=== PATIENT | male | born 1955 | race Two or more races ===

== ENCOUNTER 2018-12-16 10:15 | Outpatient (CLI) | payer OTHER | END 2018-12-16 10:25 | disposition home or self-care (01) | LOC: RAD 10:15 | DX: K44.9 Diaphragmatic hernia without obstruction or gangrene (principal) ==

== ENCOUNTER 2024-09-03 14:31 | Emergency (ER) | payer OTHER ==
[~2024-09-03] VITALS: Ht 165.1 cm; Wt 78.0 kg
[~2024-09-03 14:31] MED LIST: ALTACE10 MG; ANALPRAM HC 2.530 GM RECTAL; CIPRO500 MG PO; HYDROCHLOROTH12.5 MG; LEVSIN/SL0.125 MG SL; LIPITOR40 M1; METRONIDAZOLE500 MG PO; OMEPRAZOLE MAGN20 MG PO; PLAVIX75 MG; TOPROL XL50 MG
[2024-09-03 15:08] VITALS: BP 136/76; O2SAT 99
[2024-09-03] MEDS ORDERED: ONDANSETRON HCL 2 MG/ML VIAL IV ONE (15:45)
[2024-09-03] MEDS ORDERED: FAMOTIDINE/PF 20 MG/2 ML VIAL IV ONE (15:45)
[2024-09-03] MEDS ORDERED: MECLIZINE HCL 12.5 MG TABLET PO ONE (15:45)
[2024-09-03] MEDS ORDERED: 0.9 % SODIUM CHLORIDE 500 ML IV ONE (15:45)
[2024-09-03 16:12] LABS: HEMATOCRIT 42.1 % (39.0-48.0); HEMOGLOBIN 14.6 g/dL (13-16.00); MEAN CELL VOLUME 87.5 fL (80.0-100.00); MEAN CORPUSCULAR HEMOGLOBIN 30.4 pg (27.00-32.0); MEAN CORPUSCULAR HGB CONC 34.7 g/dl (32.0-36.0); PLATELET COUNT 235 K/uL (150-450); RED BLOOD COUNT 4.81 M/uL (4.00-6.00); RED CELL DISTRIBUTION WIDTH 13.6 % (11.5-14.5)
[2024-09-03 17:05] LABS: ALBUMIN 4.4 gm/dL (3.4-5.0); BILIRUBIN TOTAL 0.66 mg/dL (0.3-1.2); CALCIUM 9.5 mg/dL (8.5-10.1); CREATININE SERUM 0.87 mg/dL (0.70-1.30); POTASSIUM 3.67 mEq/L (3.5-5.1); TOTAL PROTEIN 7.4 gm/dL (6.4-8.2)
[2024-09-03 17:55] LABS: URINE APPEARANCE Clear; URINE BILIRRUBIN Negative (NEGATIVE); URINE BLOOD Negative; URINE COLOR Yellow; URINE GLUCOSE Negative (NEGATIVE); URINE KETONE Trace (NEGATIVE); URINE LEUKOCYTE Trace; URINE NITRATE Negative; URINE PROTEIN 30 (NEGATIVE)
[2024-09-03 18:01] LABS: URINE BACTERIA 18.3 uL (0.0-1933); URINE RBC 13.6 uL (0.0-20.8); URINE WBC 2.8 uL (0.0-23.2)
[2024-09-03] MEDS ORDERED: MECLIZINE HCL25 MG PO (18:48)
== END 2024-09-03 19:08 ==
LOC: ER 14:33
PROVIDERS: General Practice
DX: R42 Dizziness and giddiness (principal); R11.2 Nausea with vomiting, unspecified; R11.10 Vomiting, unspecified; Z20.822 Contact with and (suspected) exposure to COVID-19; I10 Essential (primary) hypertension; Z88.6 Allergy status to analgesic agent
CPT/HCPCS: 36415; 70450; 96365; 96366; 99284; J2405; J3490; J7042